=== PATIENT | female | born 1960 | race African-American/Black ===

== ENCOUNTER → 2021-01-05 01:51 | Outpatient (CLI) | payer OTHER, SELFPAY ==
[2021-01-05 19:24] LABS: SARS-CoV-2 RNA PCR Negative
== END ==
PROVIDERS: Visit Provider Urology
DX: Z01.812 Encounter for preprocedural laboratory examination (principal); Z20.822 Contact with and (suspected) exposure to COVID-19
CPT/HCPCS: C9803; U0003; U0005

== ENCOUNTER 2021-01-08 00:52 | Day surgery (SDC) | payer OTHER, SELFPAY ==
[2020-12-30 11:10] VITALS: BMI 36.8
--- NOTE | 2021-01-07 09:35 | WPDANESEPPF ---
Anes - Initial Pre Proc Eval Procedure: Operation Date: 01/08/21 11:15 Proposed Procedures p Urethral Sling - Jonh Sapp MD Date/Time: 01/07/21 09:35 Surgeon: Jonh Sapp MD Pre Op Diagnosis: stress incontinence Patient Data Age: 60 Gender: F Height: 1.73 m Weight: 110 kg Allergies Allergy/AdvReac Type Severity Reaction Status Date / Time nitrofurantoin Allergy Intermediate Rash Verified 01/08/21 08:15 [From Macrobid] Home Medications Medication Instructions Recorded Confirmed Type aspirin 81 mg PO DAILY 12/30/20 12/30/20 History budesonide-formoterol [Symbicort] 2 puff INHALATION Q6H PRN 12/30/20 12/30/20 History cetirizine [Zyrtec] 10 mg PO DAILY 12/30/20 12/30/20 History dapagliflozin [Farxiga] 10 mg PO DAILY 12/30/20 12/30/20 History ergocalciferol (vitamin D2) 1,250 mcg PO WEEKLY 12/30/20 12/30/20 History [Vitamin D2] levothyroxine [Synthroid] 100 mcg PO DAILY 12/30/20 12/30/20 History liraglutide [Victoza 3-Black] 1.8 mg SUBCUT DAILY 12/30/20 12/30/20 History metoprolol tartrate 25 mg PO BID 12/30/20 12/30/20 History paroxetine HCl [Paxil] 30 mg PO DAILY 12/30/20 12/30/20 History rivaroxaban [Xarelto] 20 mg PO DAILY 12/30/20 12/30/20 History rosuvastatin [Crestor] 40 mg PO DAILY 12/30/20 12/30/20 History telmisartan [Micardis] 40 mg PO DAILY 12/30/20 12/30/20 History Patient hx anesthesia problems: post op nausea/vomiting Family hx anesthesia problems: none PMFSH Past Medical History Medical History (Updated 01/08/21 @ 07:28 by Jonh Sapp MD) Anxiety Asthma Depression Diabetes type 2, controlled DVT (deep venous thrombosis) Hiatal hernia Hyperlipidemia Hypertension Hypothyroidism MVP (mitral valve prolapse) LAM (obstructive sleep apnea) no CPAP PONV (postoperative nausea and vomiting) Surgical History Surgical History (Updated 01/07/21 @ 09:37 by Kain Vergara DO) History of appendectomy History of cholecystectomy History of hysterectomy History of total left knee replacement History of tubal ligation Social History Social History Smoking status: Never smoker Alcohol intake: never Substance use: never Substance use type: does not use Living arrangements: with family Spiritual care concerns: No Anes - Eval Final PreProcedure Day of Procedure 01/07/21 09:35 Patient weight: obese Heart: regular rate and rhythm Lungs: clear to auscultation and normal air movement Airway: Mallampati scale class II Neurological: alert and oriented Last oral intake: >/= 8 hours ASA classification: III Emergent: no Anesthetic plan: proceed Anesthesia type and monitoring: general GIVS and LMA and standard monitoring Informed Consent: The patient's anesthetic plan and its attendant risks and benefits were discussed with the patient/family/POA. Questions were solicited and answers provided to the satisfaction of the patient/family/POA.
[2021-01-08] VITALS (7 sets, daily range): BP systolic 119–145; BP diastolic 58–78; PULSE 68–83; RESP 20; TEMP 36.4; O2SAT 94–100; BMI 37.0
--- NOTE | 2021-01-08 07:29 | P.HP_ITS ---
H&P: HPI History of Present Illness Date/Time: 01/07/21 21:02 60 yo with JERILYN and OAB Chief Complaint: Stress incontinene Review of Systems Review of Systems: All systems reviewed & are unremarkable except as noted in HPI and below COUNTS INCLUDE 234 BEDS AT THE [facility] Past Medical History Medical History (Updated 01/08/21 @ 07:28 by Jonh Sapp MD) Anxiety Asthma Depression Diabetes type 2, controlled DVT (deep venous thrombosis) Hiatal hernia Hyperlipidemia Hypertension Hypothyroidism MVP (mitral valve prolapse) LAM (obstructive sleep apnea) no CPAP PONV (postoperative nausea and vomiting) Surgical History Surgical History (Updated 01/07/21 @ 09:37 by Kain Vergara DO) History of appendectomy History of cholecystectomy History of hysterectomy History of total left knee replacement History of tubal ligation Social History Social History Smoking status: Never smoker Alcohol intake: never Substance use: never Substance use type: does not use Living arrangements: with family Spiritual care concerns: No Meds Home Medications and Allergies Home Medications Medication Instructions Recorded Confirmed Type aspirin 81 mg PO DAILY 12/30/20 12/30/20 History budesonide-formoterol [Symbicort] 2 puff INHALATION Q6H PRN 12/30/20 12/30/20 History cetirizine [Zyrtec] 10 mg PO DAILY 12/30/20 12/30/20 History dapagliflozin [Farxiga] 10 mg PO DAILY 12/30/20 12/30/20 History ergocalciferol (vitamin D2) 1,250 mcg PO WEEKLY 12/30/20 12/30/20 History [Vitamin D2] levothyroxine [Synthroid] 100 mcg PO DAILY 12/30/20 12/30/20 History liraglutide [Victoza 3-Black] 1.8 mg SUBCUT DAILY 12/30/20 12/30/20 History metoprolol tartrate 25 mg PO BID 12/30/20 12/30/20 History paroxetine HCl [Paxil] 30 mg PO DAILY 12/30/20 12/30/20 History rivaroxaban [Xarelto] 20 mg PO DAILY 12/30/20 12/30/20 History rosuvastatin [Crestor] 40 mg PO DAILY 12/30/20 12/30/20 History telmisartan [Micardis] 40 mg PO DAILY 12/30/20 12/30/20 History Allergies Allergy/AdvReac Type Severity Reaction Status Date / Time nitrofurantoin Allergy Intermediate Rash Verified 12/30/20 11:06 [From Macrobid] Exam Const: General: cooperative and healthy appearing Eyes: General: appearance normal, both eyes and all related structures Resp: Effort & Inspection: normal respiratory effort and able to speak in complete sentences GI: Inspection: normal to inspection Back/Spine/Pelvis: Back: no CVA tenderness Neuro: General: patient oriented x3 Extrem: General: normal to inspection Psych: Appearance: grossly normal Assessment and Plan Assessment and plan (1) JERILYN (stress urinary incontinence, female): Code(s): N39.3 - Stress incontinence (female) (male) Status: Acute Assessment and Plan: urethral sling (2) Overactive bladder: Code(s): N32.81 - Overactive bladder Status: Acute
--- NOTE | 2021-01-08 07:29 | WPDHPUPDATE1 ---
History and Physical Update Update Date/Time: 01/08/21 07:29 History and Physical has been reviewed, including an updated exam of the patient. There are NO changes in the patient's condition. Risks, benefits, and alternatives have been discussed and questions answered. Patient agrees to proceed with procedure.
--- NOTE | 2021-01-08 08:27 | SUR.PREOP ---
PT STATES SHE HAS PERINEAL/PUBIC SKIN IRRITATION FROM URINARY PAD USAGE.
[2021-01-08] MEDS: LACTATED RINGERS 1,000 ML 30 ML IV CONT (08:38)
[2021-01-08] MEDS: FAMOTIDINE 20 MG/2 ML VIAL IV PUSH (08:40)
[2021-01-08] MEDS: SCOPOLAMINE 1.5 MG PATCH TRANSDERM (08:41)
[2021-01-08] MEDS: ceFAZolin 2 GM/D5W 50 ML 2 GM/50 ML BAG IVPB (10:16)
[2021-01-08] MEDS: LIDO 1%/EPINEPHRINE 1:100,000 50 ML VIAL 10 ML INFILTRATE (10:23)
--- NOTE | 2021-01-08 10:47 | PM.PROC ---
Procedure Note - Detailed Date of procedure: 01/08/21 Pre-op diagnosis: stress incontinence Stress urinary incontinence Post-op diagnosis: same Procedure performed: Transobturator Mid-urethral sling Cystoscopy Description of procedure: Anesthesia: Mac/local This is a patient with confirmed stress urinary incontinence. She desires correction. She understands the risks of bleeding, infection, damage to the urinary tract, lack of cure of stress incontinence, recurrence of stress incontinence, postoperative voiding dysfunction including incontinence and retention, need for ancillary procedures to loosen remove the sling, postoperative voiding dysfunction including retention and overactive bladder, hip and leg pain, dyspareunia, mesh related complications including exposure and extrusion. She agrees to proceed. She understands it will not help overactive bladder symptoms if present. She has had Botox recently. She states it is working very well for urgency. She understands the increased risk of incomplete emptying. She was correctly identified and informed consent obtained. She is brought to the operating room. She was given appropriate anesthesia. She was placed in the dorsal lithotomy position. All pressure points were padded. She was given appropriate perioperative antibiotics and a time-out performed. A Bazan catheter is placed. I marked out the thigh incisions anesthetize the skin and made those incisions. She had a narrow introitus and atrophic vaginitis. I anesthetized the anterior vaginal wall over the mid urethra. I made a 1 cm incision. I dissected out laterally taking great care not to injure the urethra or the vaginal wall. Passed the helical trocars 1st on the left and then on the right from the thigh incision towards the vaginal incision. Sling was connected to the trocars and brought out through the thigh incision. I tensioned the sling appropriately. I cut and removed the plastic sheaths. I closed the incision with 2 0 Vicryl. I then performed cystoscopy. There was no surgical artifact or abnormalities inside the bladder. The urethra was normal without surgical artifact. I cut the excess sling material. I closed the incisions with glue. She was awakened and transferred to the PACU in stable condition. Implants: Mid urethral sling Surgeon: Jonh Sapp MD Drains: No Packing: No Pathology: none sent Complications: No immediate complications Condition: stable Disposition: PACU
[2021-01-08 11:27] LABS: Glucose Point of Care 127 (65-105)
== END 2021-01-08 12:59 | disposition home or self-care (01) ==
PROVIDERS: Visit Provider Urology
PROC: (CPT 57288; principal; 2021-01-08 09:45)
DX: N39.3 Stress incontinence (female) (male) (principal); E11.9 Type 2 diabetes mellitus without complications; J45.909 Unspecified asthma, uncomplicated; I10 Essential (primary) hypertension; E03.9 Hypothyroidism, unspecified; G47.33 Obstructive sleep apnea (adult) (pediatric); I34.1 Nonrheumatic mitral (valve) prolapse; F41.8 Other specified anxiety disorders; Z79.82 Long term (current) use of aspirin; Z79.01 Long term (current) use of anticoagulants; Z79.84 Long term (current) use of oral hypoglycemic drugs; E66.9 Obesity, unspecified; Z68.37 Body mass index [BMI] 37.0-37.9, adult
CPT/HCPCS: 57288; 82948; A9270; C1771; J0690; J1100; J1200; J2250; J2405; J2704; J3010; J7030; J7120